=== PATIENT | female | born 1985 | race Caucasian/White ===

== ENCOUNTER 2021-10-14 10:45 | Inpatient (IN) | payer MEDICAID ==
[~2021-10-14] VITALS: Ht 172.7 cm; Wt 109.8 kg
[2021-10-14 10:51] VITALS: BP 200/153
--- NOTE | 2021-10-14 10:57 | NUR ---
PT ASSISTED TO BED 05 VIA W/C.
[2021-10-14] MEDS ORDERED: NITROGLYCERIN 0.4 MG TAB SL ONE (11:40)
[2021-10-14] MEDS ORDERED: FUROSEMIDE 40 MG/4 ML VIAL IVP SCH (11:40)
[2021-10-14] MEDS ORDERED: ASPIRIN 325 MG TAB PO ONE (11:40)
--- NOTE | 2021-10-14 11:50 | NUR ---
36/F PRESENTS TO ED WITH C/O SOB AND ABDOMINAL DISTENTION AND PAIN X4 DAYS. PATIENTS STATES HX OF CHF, STATING SHE USES OXYGEN AT HOME INTERMITTENTLY NEEDED. PATIENT STATING OVER THE LAST 4 DAYS SHE HAS FELT INCREASINGLY MORE SOB. PATIENT ALSO C/O ABDOMINAL PAIN, STATING "MY STOMACH IS STICKING OUT MORE AND MORE EVERDAY." ABDOMEN APPEARS DISTENDED AND FIRM, TENDER TO TOUCH. PATIENT REPORTS SHE HAS BEEN OUT OF HER PRESCRIBED LASIX AT HOME AND STATES SHE BELIEVES IT IS CONTRIBUTING TO HER PAIN. DENIES CP, HEADACHE, DIZZINESS. 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 EVANS.
--- NOTE | 2021-10-14 12:00 | NUR ---
PATIENT CANNOT RECALL NAMES OF HOME MEDICATIONS, STATED FAMILY IS UNAWARE OF MEDICATION NAMES AND DOSAGES.
--- NOTE | 2021-10-14 12:10 | NUR ---
URINE SAMPLE HANDED TO ENGINEERING AIDE PRISCILLA
[2021-10-14 12:22] LABS: ANION GAP 13.7 (8-16); CARBON DIOXIDE 25.2 mmol/L (21-32); CREATININE 1.2 mg/dL (0.6-1.3); POTASSIUM 4.9 mmol/L (3.5-5.1)
[2021-10-14 12:23] LABS: BASOPHILS # (AUTO) 0.1 K/uL (0.00-0.22); BASOPHILS % (AUTO) 1.1 % (0.0-2.0); EOSINOPHILS # (AUTO) 0.1 K/uL (0-0.4); HEMATOCRIT 50.7 % (36-48); HEMOGLOBIN 15.9 g/dL (12.0-16.0); LYMPHOCYTES # (AUTO) 2.8 K/uL (2.5-16.5); LYMPHOCYTES % (AUTO) 51.8 % (20.5-51.1); MEAN CORPUSCULAR HEMOGLOBIN 24 pg (27-31); MEAN CORPUSCULAR HGB CONC 31 g/dL (33-37); MEAN CORPUSCULAR VOLUME 77.7 fL (80-94); MONOCYTES # (AUTO) 0.7 K/uL (0.8-1.0); MONOCYTES % (AUTO) 13.9 % (1.7-9.3); NEUTROPHILS # (AUTO) 1.7 K/uL (1.8-7.7); NEUTROPHILS % (AUTO) 32.2 % (42.2-75.2); PLATELET COUNT (AUTO) 238 K/uL (140-450); RED BLOOD CELL COUNT(AUTO) 6.52 MIL/uL (4.20-5.40); RED CELL DISTRIBUTION WIDTH 17.5 % (11.6-13.7); WHITE BLOOD COUNT (AUTO) 5.4 K/uL (4.8-10.8)
[2021-10-14 12:28] LABS: LIPASE 50 U/L (73-393)
[2021-10-14 13:02] LABS: BARBITURATE, URINE NEGATIVE ng/ml (NEG <=200); BENZODIAZEPINE, URINE NEGATIVE ng/mL (NEG <=200); CANNABINOID, URINE POSITIVE ng/mL (NEG <=50); COCAINE, URINE NEGATIVE ng/mL (NEG <=300); OPIATE, URINE NEGATIVE ng/mL (NEG <=2000); PHENCYCLIDINE SCREEN,URINE NEGATIVE ng/mL (NEG <=25)
[2021-10-14 13:16] LABS: ALBUMIN 2.9 g/dL (3.4-5.0); TOTAL BILIRUBIN 1.1 mg/dL (0.0-1.0)
[2021-10-14] MEDS ORDERED: MORPHINE SULFATE 4 MG/ML SYR IVP ONE (14:15)
[2021-10-14] MEDS ORDERED: FUROSEMIDE 20 MG/2 ML VIAL IVP ONE (14:50)
--- NOTE | 2021-10-14 15:57 | NUR ---
PUREWICK PLACED FOR PATIENT AND HOOKED TO SUCTION, ALL NEEDS MET AT THIS TIME.
--- NOTE | 2021-10-14 15:57 | NUR ---
MURRAY SWAB COLLECTED AND WALKED TO LAB
--- NOTE | 2021-10-14 17:50 | NUR ---
Patient provided with dinner tray, sitting up in bed eating. All needs met at this time.
--- NOTE | 2021-10-14 18:40 | NUR ---
PATIENT C/O NAUSEA WHILE EATING DINNER, ADMIT DR. LO TEXTED FOR PRN NAUSEA MEDICATION, AWAITING RESPONSE.
--- NOTE | 2021-10-14 19:16 | NUR ---
PATIENTS REPEAT BLOOD PRESSURE 191/148, DR. LO TEXTED AND NOTIFIED, AWAITING RESPONSE.
--- NOTE | 2021-10-14 19:17 | NUR ---
Pt report given to RONEY HAIR. Transfer of care at this time.
--- NOTE | 2021-10-14 19:30 | NUR ---
RCV ORDERS FROM ADMIT WILL GIVE TO PT AND MONITOR FOR CHANGES
[2021-10-14] MEDS ORDERED: METOPROLOL 25 MG TAB ONE (19:32)
[2021-10-14] MEDS ORDERED: ONDANSETRON 4 MG/2 ML VIAL ONE (19:32)
[2021-10-14] MEDS: ONDANSETRON 4 MG/2 ML VIAL IVP PRN (20:03)
--- NOTE | 2021-10-14 20:08 | NUR ---
2003- PT C/O NAUSEA. ZOFRAN 4MG IVP ADMINISTERED. WILL REEVALUATE.
--- NOTE | 2021-10-14 20:38 | NUR ---
Patient will be admitted to care of / TERESITA. Admited to TELE. Will go to room 104. Belongings list completed. Report to DOUG GALVAN.
--- NOTE | 2021-10-14 20:53 | NUR ---
The patient's care was reviewed and supervised by Luci Ram RN.
--- NOTE | 2021-10-14 21:00 | NUR ---
RECEIVED PATIENT FROM ER NURSE VIA KIMMY,PT IS ALERT . ON 2L NC, IV SITE LAC 22 G. PATENT AND INTACT,NO DISTRESS NOTED
[2021-10-14] MEDS: METOPROLOL 25 MG TAB PO SCH (21:23)
[2021-10-15] VITALS (7 sets, daily range): BP systolic 99–163; BP diastolic 66–125
--- NOTE | 2021-10-15 01:00 | NUR ---
PT COMPLAIN OF N/V GAVE ZOFRAN 4MG IVP,TOLERATED WELL
--- NOTE | 2021-10-15 03:00 | NUR ---
PATIENT ASLEEP, RESPIRATIONS EVEN AND UNLABORED , NO DISTRESS NOTED
[2021-10-15] MEDS: ONDANSETRON 4 MG/2 ML VIAL IVP PRN (04:59)
--- NOTE | 2021-10-15 06:00 | NUR ---
PATIENT IS AWAKEAND ASK TO BE CLEANED.PT IS ON FLUID RESTRICTIONS PROTOCOL
--- NOTE | 2021-10-15 07:15 | NUR ---
Received report from pm nurse. Pt resting in bed, awake, aaox4, no c/o pain at this time. Respirations even & nonlabored with O2 @ 2Lpm via n/c. Call light within reach. Purewick in place with continuous suction.
--- NOTE | 2021-10-15 08:52 | NUR ---
PATIENT HAS BEEN SCREENED AND CATEGORIZED MODERATE NUTRITION RISK. PATIENT WILL BE SEEN WITHIN 3-5 DAYS OF ADMISSION. / JOANIE CEE RD
[2021-10-15] MEDS: METOPROLOL 25 MG TAB PO SCH (09:00)
[2021-10-15] MEDS ORDERED: MAG SULF 2000 MG/WATER PREMIX 50 ML IV PRN (09:20)
[2021-10-15] MEDS ORDERED: ZOLPIDEM 5 MG TAB PO PRN (09:20)
[2021-10-15] MEDS ORDERED: ACETAMINOPHEN 325 MG TAB PO PRN (09:20)
[2021-10-15] MEDS ORDERED: POTASSIUM CHLORIDE 10 MEQ TABER PO PRN (09:20)
[2021-10-15] MEDS ORDERED: ONDANSETRON 4 MG/2 ML VIAL IM/IVP PRN (09:20)
[2021-10-15] MEDS ORDERED: LORazepam 2 MG/ML VIAL IM/IVP PRN (09:20)
[2021-10-15] MEDS ORDERED: DOCUSATE SODIUM 100 MG GELCAP PO PRN (09:20)
[2021-10-15] MEDS ORDERED: FUROSEMIDE 40 MG/4 ML VIAL IVP SCH (09:25)
[2021-10-15 10:20] LABS: HEMATOCRIT 54.8 % (36-48); MONOCYTES # (AUTO) 0.5 K/uL (0.8-1.0); WHITE BLOOD COUNT (AUTO) 8.4 K/uL (4.8-10.8)
[2021-10-15 10:27] LABS: ANION GAP 23.9 (8-16); BASOPHILS % (AUTO) 0.5 % (0.0-2.0); CARBON DIOXIDE 15.7 mmol/L (21-32); CREATININE 1.9 mg/dL (0.6-1.3); EOSINOPHILS % (AUTO) 0.2 % (0.0-4.0); LYMPHOCYTES # (AUTO) 2.3 K/uL (2.5-16.5); LYMPHOCYTES % (AUTO) 27.5 % (20.5-51.1); MEAN CORPUSCULAR HEMOGLOBIN 25 pg (27-31); MEAN CORPUSCULAR HGB CONC 31 g/dL (33-37); MONOCYTES % (AUTO) 6.1 % (1.7-9.3); NEUTROPHILS # (AUTO) 5.5 K/uL (1.8-7.7); NEUTROPHILS % (AUTO) 65.7 % (42.2-75.2); PLATELET COUNT (AUTO) 216 K/uL (140-450); RED BLOOD CELL COUNT(AUTO) 6.93 MIL/uL (4.20-5.40); RED CELL DISTRIBUTION WIDTH 18.2 % (11.6-13.7)
[2021-10-15 10:30] LABS: POTASSIUM 6.6 mmol/L (3.5-5.1)
[2021-10-15 10:33] LABS: PROTHROMBIN TIME 20.6 secs (10.8-13.4)
[2021-10-15] MEDS ORDERED: SODIUM ZIRCONIUM CYCLOSILICATE 10 GM POWD.PACK ONE (10:38)
[2021-10-15 10:42] LABS: CHOL/HDL RATIO 4.3 (1-4.5); MAGNESIUM 2.1 mg/dL (1.8-2.4); THYROID STIMULATING HORMONE 1.35 uIU/mL (0.34-3.74)
[2021-10-15] MEDS ORDERED: INSULIN REGULAR, HUMAN 100 UNIT/ML VIAL SUBQ ONE (10:45)
[2021-10-15] MEDS ORDERED: SODIUM ZIRCONIUM CYCLOSILICATE 10 GM POWD.PACK PO SCH (11:00)
[2021-10-15] MEDS ORDERED: INSULIN REGULAR, HUMAN 100 UNIT/ML VIAL IVP SCH (11:00)
[2021-10-15] MEDS ORDERED: DEXTROSE 50% 50 ML SYR IVP SCH ×2 (11:00→12:30)
[2021-10-15] MEDS ORDERED: NOREPINEPHRINE 16 MG in DEXTROSE 5% 250 ML IV PRN (11:05)
--- NOTE | 2021-10-15 11:10 | NUR ---
Notified Dr. Khanna, unable to get pt's auto and manual BP. BUE and BLE peripheral pulses weak, extremities cold to touch. Pt ordered to transfer pt to ICU.
--- NOTE | 2021-10-15 11:20 | NUR ---
Patient transferred to ICU via hospital bed. Report given to ICU nurse. Pt lethargic but able to open eyes to name, able to answer questions appropriately. Periwick removed per Dr. Khanna.
--- NOTE | 2021-10-15 11:25 | NUR ---
Received pt lying in bed alert and oriented x4 able to answer questions. Pt. drowsy. Breathing even and unlabored. On 4L per nasal cannula. Sinus rhythm on monitor. Bowel sounds hypoactive x4 quads. 20 gauge on left forearm intact and patent. Oriented pt to environment. Safety precautions in place.
[2021-10-15] MEDS ORDERED: FUROSEMIDE 100 MG in DEXTROSE 5% 90 ML IV SCH (11:30)
--- NOTE | 2021-10-15 11:35 | NUR ---
Blood sugar 18. Dr. Khanna at bedside and ordered D50 IVP. New orders received. Pt. awake and alert. No distress noted. IV fluids infusing at 50 ml/hr. Will continue to monitor.
[2021-10-15 11:53] LABS: URINE TOTAL PROTEIN 279.7 mg/dL (0-12)
[2021-10-15] MEDS ORDERED: DEXTROSE 50% 50 ML SYR IVP PRN (12:15)
[2021-10-15] MEDS ORDERED: DEXT 5% / NACL 0.9% 1,000 ML IV SCH (12:15)
--- NOTE | 2021-10-15 12:35 | NUR ---
ULTRASOUND AT BEDSIDE.
--- NOTE | 2021-10-15 12:58 | NUR ---
DR. RIOS AT BEDSIDE EXAMINING PT.
[2021-10-15] MEDS ORDERED: hydrALAZINE 20 MG/ML VIAL IVP PRN (13:25)
[2021-10-15] MEDS ORDERED: CALCIUM GLUC 1 GM/50 mL NS BAG 50 ML IV SCH (13:30)
--- NOTE | 2021-10-15 14:22 | NUR ---
ULTRASOUND AT BEDSIDE.
[2021-10-15] MEDS: CALCIUM ACETATE 667 MG TAB PO SCH ×2 (14:24→16:36)
[2021-10-15 14:43] LABS: ANION GAP 19.1 (8-16); CARBON DIOXIDE 16.9 mmol/L (21-32); CREATININE 1.9 mg/dL (0.6-1.3)
[2021-10-15] MEDS: HYDROcodone/APAP 5/325 MG 1 TAB TAB PO PRN (15:17)
[2021-10-15] MEDS: BLOOD GLUCOSE MONITORING 1 DEV DEV FS SCH ×2 (15:50→20:51)
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
--- NOTE | 2021-10-15 17:15 | NUR ---
SPOKE WITH DR. GALVAN REGARDING PICC PLACEMENT. NO RADIOLOGIST HERE TO PLACE TLC MAY PROCEED WITH PICC LINE.
--- NOTE | 2021-10-15 18:50 | NUR ---
SPOKE TO DR. RIOS AND REPORT HIGH BLOOD PRESSURE. NEW ORDER FOR LABETELOL 10MG IVP NOTED AND CARRIED OUT.
[2021-10-15 18:51] LABS: APPEARANCE,URINE CLEAR (CLEAR); BILIRUBIN,URINE 1+ (NEGATIVE); BLOOD, URINE TRACE-L (NEGATIVE); COLOR,URINE YELLOW (YELLOW); LEUKOCYTE ESTERASE ,URINE NEGATIVE (NEGATIVE); NITRITE, URINE NEGATIVE (NEGATIVE); PH,URINE 5.5 (5.0-9.0); UGLUCOSE NEGATIVE (NEGATIVE)
--- NOTE | 2021-10-15 18:55 | NUR ---
PATIENT COMPLAINED OF NAUSEA. ZOFRAN 4MG IV GIVEN.
[2021-10-15] MEDS: LABETALOL 100 MG/20 ML VIAL IVP PRN (18:59)
--- NOTE | 2021-10-15 19:20 | NUR ---
ENDORSED TO GAME DESIGNER/CREATIVE DIRECTOR NURSE FOR CONTINUITY OF CARE.
--- NOTE | 2021-10-15 19:45 | NUR ---
PT ON 2L NASAL CANULA, CLEAR THROUGHOUT LUNG CORTEZ, ASYMMETRICAL CHEST RISE.
--- NOTE | 2021-10-15 19:49 | NUR ---
RECEIVED REPORT AT BEDSIDE FROM BEATRICEIAEVA GARCIA FOR CONTINUITY OF CARE. PT LAYING IN BED AOx4; ABLE TO LET NEEDS KNOWN. PT WITH ELEVATED BLOOD PRESSURE OF 151/107. BRACHIAL AND PEDAL PULSES PRESENT. HEART SOUNDS S1 AND S2 PRESENT. ON 2L NC WITH PT COMPLAINT OF DIFFICULTY BREATHING AND AN O2 SATURATION OF 94%. 20G TO LEFT ARM, PATENT AND INTACT, RUNNING LASIX @5ML/HR. PT ABLE TO VOID IN BEDPAN UPON REQUEST. SKIN INTACT. PT DENIES HAVING ANY PAIN AT THIS TIME. INITIAL ASSESSMENT COMPLETED. ALL SAFETY MEASURE IN PLACE. WILL CONTINUE TO MONITOR.
--- NOTE | 2021-10-15 20:05 | NUR ---
PT COMPLAINT OF BEING TOO HOT, ICE PACKS AND COOL TOWEL PROVIDED.
[2021-10-15] MEDS: hydrALAZINE 25 MG TAB PO SCH (20:51)
[2021-10-15] MEDS: ISOSORBIDE DINITRATE 10 MG TAB PO SCH (20:51)
[2021-10-15] MEDS ORDERED: carvediloL 6.25 MG TAB PO SCH (21:00)
--- NOTE | 2021-10-15 21:00 | NUR ---
PT COMPLAINT OF NOT BEING ABLE TO SLEEP. AMBIEN ADMINISTERED ORDERED. WILL CONTINUE TO MONITOR.
--- NOTE | 2021-10-15 22:10 | NUR ---
PT REQUEST TO USE BEDPAN. PT CLEANED AND REPOSITIONED. TOLERATED WELL WITH 300ML YELLOW URINE OUTPUT. Addendum: 10/16/21 at 0529 by Bryce Alvarenga RN PUREWICK APPLIED.
[2021-10-16] VITALS (10 sets, daily range): BP systolic 111–162; BP diastolic 76–106
--- NOTE | 2021-10-16 00:10 | NUR ---
PICC LINE NURSE AT BEDSIDE FOR INSERTION
--- NOTE | 2021-10-16 01:02 | NUR ---
CXR DONE FOR PLACEMENT OF PICC LINE; PER ISA PICC LINE NURSE, OK TO USE
--- NOTE | 2021-10-16 03:00 | NUR ---
PT AWAKE; NO SOB NOTED ON 02NC AT 2LPM.DENIES PAIN.
[2021-10-16] MEDS: hydrALAZINE 25 MG TAB PO SCH ×3 (05:07→21:29)
[2021-10-16] MEDS: ISOSORBIDE DINITRATE 10 MG TAB PO SCH ×3 (05:07→21:30)
[2021-10-16 05:38] LABS: BASOPHILS % (AUTO) 0.4 % (0.0-2.0); HEMATOCRIT 51.6 % (36-48); HEMOGLOBIN 16.1 g/dL (12.0-16.0); MEAN CORPUSCULAR HEMOGLOBIN 25 pg (27-31); MEAN CORPUSCULAR HGB CONC 31 g/dL (33-37); MEAN CORPUSCULAR VOLUME 78.5 fL (80-94); MONOCYTES # (AUTO) 0.7 K/uL (0.8-1.0); MONOCYTES % (AUTO) 7.8 % (1.7-9.3); NEUTROPHILS # (AUTO) 5.6 K/uL (1.8-7.7); NEUTROPHILS % (AUTO) 59.8 % (42.2-75.2); PLATELET COUNT (AUTO) 196 K/uL (140-450); RED BLOOD CELL COUNT(AUTO) 6.57 MIL/uL (4.20-5.40); RED CELL DISTRIBUTION WIDTH 18.4 % (11.6-13.7); WHITE BLOOD COUNT (AUTO) 9.3 K/uL (4.8-10.8)
[2021-10-16 06:18] LABS: ANION GAP 17.7 (8-16); CARBON DIOXIDE 20.8 mmol/L (21-32); CREATININE 1.7 mg/dL (0.6-1.3); POTASSIUM 5.5 mmol/L (3.5-5.1)
[2021-10-16 06:23] LABS: MAGNESIUM 1.9 mg/dL (1.8-2.4); PHOSPHORUS 4.3 mg/dL (2.5-4.9)
--- NOTE | 2021-10-16 07:35 | NUR ---
RECEIVED BEDSIDE REPORT FROM ELECTRICIAN SHIP NURSE FOR CONTINUITY OF CARE. POC DISCUSSED. PT IS AOX4. RALPH PICC LINE WITH TKO D5 PATENT AND INTACT. HEART SOUNDS REGULAR. ST ON HEART MONITOR. ON 2L NC. SATING AT 94. BREATHING IS EVEN AND UNLABORED. NO SIGNS OF DISTRESS NOTED. ON CARDIAC DIET. PURE WICK IN PLACE WITH LIGHT YELLOW CLEAR URINE. PT IS STABLE.
[2021-10-16] MEDS: BLOOD GLUCOSE MONITORING 1 DEV DEV FS SCH ×4 (08:26→21:46)
[2021-10-16] MEDS: CALCIUM ACETATE 667 MG TAB PO SCH ×3 (08:59→17:00)
[2021-10-16 09:06] LABS: T4 (THYROXINE) 6.8 ug/dL (4.5-12.0)
[2021-10-16] MEDS ORDERED: SODIUM ZIRCONIUM CYCLOSILICATE 10 GM POWD.PACK PO SCH (10:00)
[2021-10-16] MEDS: LABETALOL 100 MG/20 ML VIAL IVP PRN (11:14)
[2021-10-16] MEDS: NIFEdipine 60 MG TABER PO SCH (11:30)
--- NOTE | 2021-10-16 12:00 | NUR ---
STILL CHANGING BP MEDS TO ADJUST AND FIX PT BLOOD PRESSURE. GAVE LABETOLOL AND WILL START ON NIFEDIPINE. WILL CONTINUE TO MONITOR. LASIX DRIP RUNNING. PT URINE OUTPUT IS GOOD. 1 LITER OUT SO FAR.
[2021-10-16] MEDS: HYDROcodone/APAP 5/325 MG 1 TAB TAB PO PRN ×2 (14:02→23:20)
--- NOTE | 2021-10-16 14:52 | NUR ---
NORCO GIVEN FOR PAIN PER MD ORDER. PT BP IS SLIGHTLY IMPROVING NOW. 1 MORE LITER, TOTAL 2 LITERS OUT OF LIGHT YELLOW URINE WITH PUREWICK. PT IS BREATHING EVEN AND UNLABORED. NO SIGNS OF DISTRESS NOTED. PT IS STABLE.
--- NOTE | 2021-10-16 15:23 | NUR ---
DC PLANNING SW ATTEMPTED TO SEE PATIENT AT BEDSIDE FOR THE PURPOSE OF DISCUSSING AND GATHERING COLLATERAL INFORMATION HOWEVER, PATIENT STRUGGLED WITH STAYING AWAKE LONG ENOUGH TO RESPOND TO SW. SW WILL ATTEMPT TO MEET WITH PATIENT 11/16 WHEN PATIENT IS MORE ALERT.
--- NOTE | 2021-10-16 18:29 | NUR ---
BROUGHT PATIENT UP TO [facility] FLOOR TO ROOM 110A. PT IS BREATHING EVEN AND UNLABORED. ON 2L NC SATING AT 96. CONNECTED NEW PURE WICK TO SUCTION. PT IS SHOWING NO SIGNS OF DISTRESS. PT IS STABLE.
[2021-10-16] MEDS: INSULIN LISPRO SLIDING SCALE 100 UNITS/ML VIAL SUBQ PRN (21:43)
--- NOTE | 2021-10-16 23:00 | NUR ---
GET REPORT FROM NURSE SCHMIDT , PATIENT IS LYING ON BED ,PATIENT IS ALERT AND ORIENTED X3 , VITAL SIGN IS WITHIN THE RANGE , PATIENT IS RECEIVING 2 LITER OXYGEN,NO ANY COMPLAIN OF SHORTNESS OF BREATH AT THIS TIME , CALL LIGHT IS WITHIN THE REACH WILL CONTINUE TO MONITOR PATIENT.
--- NOTE | 2021-10-16 23:20 | NUR ---
PATIENT IS COMPLAINING OF HEADACHE 11/30 , PATIENT IS ASKING NORCO FOR PAIN PRN , MEDICATION IS GIVEN PER DR ORDER , WILL REASSESS PAIN LAVAL , CALL LIGHT IS WITHIN THE REACH, WILL CONTINUE TO MONITOR PATIENT.
[2021-10-17] VITALS: BP 136/71
--- NOTE | 2021-10-17 | NUR ---
PATIENT IS LYING ON BED, NO ANY COMPLAIN OF PAIN,VITAL SIGN IS WITHIN THE NORMAL RANGE , , CALL LIGHT IS WITHIN THE REACH , WILL CONTINUE TO MONITOR PATIENT.
[2021-10-17 04:00] VITALS: BP 134/80
--- NOTE | 2021-10-17 04:16 | NUR ---
PATIENT IS LYING ON BED , NO ANY COMPLAIN OF PAIN OR SOB AT THIS TIME , VITAL SIGN IS WITHIN THE RANGE , CALL LIGHT IS WITHIN THE REACH ,WILL CONTINUE TO MONITOR PATIENT.
[2021-10-17] MEDS: hydrALAZINE 25 MG TAB PO SCH ×3 (04:36→21:00)
[2021-10-17] MEDS: ISOSORBIDE DINITRATE 10 MG TAB PO SCH ×3 (04:36→21:00)
[2021-10-17] MEDS: HYDROcodone/APAP 5/325 MG 1 TAB TAB PO PRN ×3 (04:56→23:05)
[2021-10-17] MEDS: BLOOD GLUCOSE MONITORING 1 DEV DEV FS SCH ×4 (06:39→21:00)
[2021-10-17] MEDS: INSULIN LISPRO SLIDING SCALE 100 UNITS/ML VIAL SUBQ PRN ×3 (06:45→23:09)
[2021-10-17 07:09] LABS: BASOPHILS % (AUTO) 0.3 % (0.0-2.0); EOSINOPHILS % (AUTO) 0.2 % (0.0-4.0); HEMATOCRIT 47.1 % (36-48); HEMOGLOBIN 14.8 g/dL (12.0-16.0); LYMPHOCYTES # (AUTO) 2.2 K/uL (2.5-16.5); LYMPHOCYTES % (AUTO) 21.7 % (20.5-51.1); MEAN CORPUSCULAR HEMOGLOBIN 24 pg (27-31); MEAN CORPUSCULAR HGB CONC 32 g/dL (33-37); MEAN CORPUSCULAR VOLUME 77.1 fL (80-94); MONOCYTES # (AUTO) 0.8 K/uL (0.8-1.0); MONOCYTES % (AUTO) 7.4 % (1.7-9.3); NEUTROPHILS # (AUTO) 7.2 K/uL (1.8-7.7); NEUTROPHILS % (AUTO) 70.4 % (42.2-75.2); PLATELET COUNT (AUTO) 190 K/uL (140-450); RED BLOOD CELL COUNT(AUTO) 6.11 MIL/uL (4.20-5.40); WHITE BLOOD COUNT (AUTO) 10.2 K/uL (4.8-10.8)
[2021-10-17 07:17] LABS: ANION GAP 8.8 (8-16); CARBON DIOXIDE 32.5 mmol/L (21-32); CREATININE 1.4 mg/dL (0.6-1.3); POTASSIUM 3.3 mmol/L (3.5-5.1)
[2021-10-17 07:31] LABS: MAGNESIUM 1.5 mg/dL (1.8-2.4); PHOSPHORUS 2.7 mg/dL (2.5-4.9)
--- NOTE | 2021-10-17 07:31 | NUR ---
GAVE REPORT TO MORNING NURSE MARINA, PATIENT IS STABLE.
[2021-10-17 08:00] VITALS: BP 112/68
--- NOTE | 2021-10-17 08:00 | NUR ---
RECEIVED PATIENT LAYING IN BED, PATIENT IS ALERT AND ORIENTED TIMES 3, PATIENT CHIEF COMPLAINT IS SOB, DIAGNOSIS ACUTE CHF EXACERBATION AND PRE RENAL KIDNEY INJURY. PATIENT HAS A HISTORY OF HYPERTENSION, METH ABUSE AND CHF. PATIENT LUGS ARE CLEAR NO ADVENTITIOUS SOUS HEARD, PATIENT IS CURRENTLY ON 2L NC WITH AN O2 SATURATION OF 93%. PATIENT WITH NOTICEABLE GENERALIZED WEAKNESS. ABDOMEN DISTENDED BOWELS SOUNDS HEARD IN ALL FOUR QUADRANTS. LEFT SIDE OF PATIENT BELLY IS HARD, RIGHT LOWER SIDE IS SOFT, ABDOMEN NONTENDER PER PATIENT REPORT. CALL LIGHT WITHIN REACH, PERSONAL BELONGINGS AT BEDSIDE, BED AT LOWEST POSITION AND LOCKED. WILL CONTINUE TO MONITOR. SHILOH CURRENTLY USING PUREWICK.
--- NOTE | 2021-10-17 09:00 | NUR ---
SPOKE TO DO ISA SULLIVAN ABOUT PATIENT FLUID RESTRICTION. DOCTOR NATE STATS PATIENT CAN BE ON 2L FLUID RESTRICTION, PATIENT NOTIFIED. WILL NOTIFY ONCOMING NURSE.
[2021-10-17] MEDS: NIFEdipine 60 MG TABER PO SCH (09:43)
[2021-10-17] MEDS: CALCIUM ACETATE 667 MG TAB PO SCH ×3 (09:43→18:07)
--- NOTE | 2021-10-17 11:00 | NUR ---
PATIENT RIGHT FOREARM IV SITE BURNING AND 2ML FLUSH WITH NS, IV TAKEN OUT AND COVERED WITH DRY DRESSING, OCONNOR NOTED ON FOREARM. CHARGE NURSE INFORMED. WILL CONTINUE TO MONITOR.
[2021-10-17 12:00] VITALS: BP 110/81
--- NOTE | 2021-10-17 12:00 | NUR ---
PATIENT STATES ARM PAIN IS BETTER AND IS SUBSIDING, WILL CONTINUE TO MONITOR THROUGHOUT SHIFT.
[2021-10-17] MEDS: FUROSEMIDE 40 MG/4 ML VIAL IVP SCH ×2 (12:23→21:00)
--- NOTE | 2021-10-17 13:30 | NUR ---
DC PLANNING SW ATTEMPTED TO MEET WITH PATIENT TO GET COLLATERAL INFORMATION AND TO PROVIDE RESOURCES FOR PATIENT. DURING THE ATTEMPTED MEETING PATIENT WAS UNABLE TO STAY AWAKE AND TO RESPOND CONGRUENTLY TO ANY OF THE QUESTIONS ASKED. PATIENT WAS NOT FULLY ALERT. SW WILL CONTINUE TO ATTEMPT TO MEET WITH PATIENT OR CONTACT EMERGENCY CONTACT JAZ LUJAN AT . SW ATTEMPTED TO CALL PATIENT'S LISTED EMERGENCY CONTACT JAZ LUJAN AT . NO RESPONSE AND VOICEMAIL WAS FULL THEREFORE; SW WAS UNABLE TO LEAVE [facility].
--- NOTE | 2021-10-17 14:00 | NUR ---
REASSESSED PATIENT RIGHT FOREARM IV SITE, PATIENT SAID THERE IS TENDERNESS UPON TOUCH, SITE IS NO RED OR SWOLLEN, NOR HAS IT APPEARED TO HAVE GOTTEN WORST. WILL CONTINUE TO MONITOR THROUGHOUT SHIFT.
--- NOTE | 2021-10-17 15:00 | NUR ---
PRN MAGNESIUM GIVEN PER DOCTOR ORDER, WILL MONITOR LAB VALUES.
[2021-10-17 16:00] VITALS: BP 124/81
[2021-10-17 20:00] VITALS: BP 112/64
[2021-10-18] VITALS: BP 120/70
--- NOTE | 2021-10-18 01:45 | NUR ---
PATIENT AWAKE BUT SLEEPY ASK FOR KARISHMATYLERO ANG SANDWICH ON MONITOR SINUS TACH 02 2 LITERS N/C SAT 98%. LUNGS DIMINISH PATIENT HAS A RIGHT UPPER ARM MIDLINE. HL. PATIENT HAS A PURWICK PATIENT C/O OF PAIN BUT DOESNT TELL YOU WHERE THE PAIN IS. BLOOD SUGAR 147 NO INSULIN GIVEN PATIENT EYES ARE JAUNDICE. PATIENT SLEEPING NO SIGNS OF DISTRESS.
[2021-10-18 04:00] VITALS: BP 118/72
[2021-10-18] MEDS: FUROSEMIDE 40 MG/4 ML VIAL IVP SCH (05:00)
[2021-10-18] MEDS: hydrALAZINE 25 MG TAB PO SCH ×2 (05:00→13:14)
[2021-10-18] MEDS: ISOSORBIDE DINITRATE 10 MG TAB PO SCH ×2 (05:00→13:13)
[2021-10-18] MEDS: BLOOD GLUCOSE MONITORING 1 DEV DEV FS SCH ×2 (06:17→11:30)
[2021-10-18] MEDS: HYDROcodone/APAP 5/325 MG 1 TAB TAB PO PRN ×2 (06:17→15:29)
[2021-10-18 07:08] LABS: CARBON DIOXIDE 32.5 mmol/L (21-32); CREATININE 1.1 mg/dL (0.6-1.3); POTASSIUM 3.5 mmol/L (3.5-5.1)
[2021-10-18 07:10] LABS: BASOPHILS % (AUTO) 0.5 % (0.0-2.0); EOSINOPHILS # (AUTO) 0.1 K/uL (0-0.4); EOSINOPHILS % (AUTO) 0.7 % (0.0-4.0); HEMATOCRIT 44.1 % (36-48); LYMPHOCYTES # (AUTO) 1.9 K/uL (2.5-16.5); LYMPHOCYTES % (AUTO) 24.3 % (20.5-51.1); MEAN CORPUSCULAR HEMOGLOBIN 24 pg (27-31); MEAN CORPUSCULAR HGB CONC 32 g/dL (33-37); MEAN CORPUSCULAR VOLUME 76.8 fL (80-94); MONOCYTES # (AUTO) 0.8 K/uL (0.8-1.0); MONOCYTES % (AUTO) 9.9 % (1.7-9.3); NEUTROPHILS # (AUTO) 5.1 K/uL (1.8-7.7); NEUTROPHILS % (AUTO) 64.6 % (42.2-75.2); PLATELET COUNT (AUTO) 185 K/uL (140-450); RED BLOOD CELL COUNT(AUTO) 5.75 MIL/uL (4.20-5.40); RED CELL DISTRIBUTION WIDTH 17.3 % (11.6-13.7); WHITE BLOOD COUNT (AUTO) 7.9 K/uL (4.8-10.8)
[2021-10-18 07:23] LABS: MAGNESIUM 1.7 mg/dL (1.8-2.4); PHOSPHORUS 2.5 mg/dL (2.5-4.9)
[2021-10-18 08:00] VITALS: BP 111/72
[2021-10-18] MEDS: CALCIUM ACETATE 667 MG TAB PO SCH ×2 (08:34→13:13)
[2021-10-18] MEDS: NIFEdipine 60 MG TABER PO SCH (08:34)
[2021-10-18] MEDS ORDERED: LACTULOSE 20 GM/30 ML UDC PO SCH (09:00)
--- NOTE | 2021-10-18 13:30 | NUR ---
10/18/21 RD INITIAL ASSESSMENT COMPLETED PLEASE REFER TO NUTRITION ASSESSMENT UNDER CARE ACTIVITY FOR ESTIMATED NUTRITIONAL NEEDS. 1. CONTINUE CARDIAC DIET TOLERATED 2. MONITOR % PO INTAKE AND GI SYMPTOMS 3. MONITOR BLOOD GLUCOSE LEVELS 4. RD TO FOLLOW-UP 3-5 DAYS, MODERATE RISK JOANIE CEE, MABEL
[2021-10-18] MEDS ORDERED: ISOS10TA9 PO (14:48)
[2021-10-18] MEDS ORDERED: HYDR-4420 PO (14:48)
[2021-10-18] MEDS ORDERED: FURO40TA9 PO (14:48)
[2021-10-18] MEDS ORDERED: CARV3.122 PO (14:48)
[2021-10-18] MEDS ORDERED: NIFE60TA39 PO (14:48)
--- NOTE | 2021-10-18 15:00 | NUR ---
PATIENT WITH DISCHARGE ORDERS, PATIENT CURRENTLY ON OXYGEN 2L NC. ASSESSED PATIENT WITHOUT OXYGEN, PATIENT OXYGEN DESATURATING TO 83% ON ROOM AIR, PATIENT STATES SHE HAS OXYGEN COMPRESSOR IN CAR THAT NEEDS TO BE PLUGGED INTO THE WALL. PATIENT IS CURRENTLY HOMELESS AND TRYING TO GET ACCEPTED INTO LONG-TERM. PATENT IS LIGHTHEADED AND REPORTS HAVING DIFFICULTY WALKING.
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
[2021-10-18 16:36] VITALS: BP 110/41
[2021-10-18] MEDS ORDERED: FUROSEMIDE 40 MG TAB PO SCH (17:00)
[2021-10-18] MEDS ORDERED: carvediloL 3.125 MG TAB PO SCH (21:00)
[2021-10-19] MEDS ORDERED: FUROSEMIDE 40 MG/4 ML VIAL IVP SCH (09:00)
== END 2021-10-18 17:35 | disposition home or self-care (01) | DRG 194 ==
LOC: MED 10:45 → MTU 14:45 → MIC 10-15 11:15 → MTU 10-16 16:10
PROC: 02HV33Z Insertion of Infusion Device into Superior Vena Cava, Percutaneous Approach (ICD-10-PCS; principal; 2021-10-16)
PROC: B548ZZA Ultrasonography of Superior Vena Cava, Guidance (ICD-10-PCS; 2021-10-16)
DX: I11.0 Hypertensive heart disease with heart failure (principal); N17.0 Acute kidney failure with tubular necrosis; G93.41 Metabolic encephalopathy; E87.2 Acidosis; E44.0 Moderate protein-calorie malnutrition; E87.1 Hypo-osmolality and hyponatremia; D68.9 Coagulation defect, unspecified; I27.29 Other secondary pulmonary hypertension; E86.0 Dehydration; I50.43 Acute on chronic combined systolic (congestive) and diastolic (congestive) heart failure; K74.60 Unspecified cirrhosis of liver; Z20.822 Contact with and (suspected) exposure to COVID-19; F17.200 Nicotine dependence, unspecified, uncomplicated; I42.9 Cardiomyopathy, unspecified; I16.1 Hypertensive emergency; E87.5 Hyperkalemia; R73.03 Prediabetes; F12.90 Cannabis use, unspecified, uncomplicated; F15.10 Other stimulant abuse, uncomplicated; Z71.51 Drug abuse counseling and surveillance of drug abuser; Z68.36 Body mass index [BMI] 36.0-36.9, adult
CPT/HCPCS: 36415; 36600; 71045; 76700; 80048; 80053; 80305; 81003; 82570; 82803; 82948; 83036; 83690; 83735; 83880; 84100; 84134; 84300; 84436; 84443; 84484; 85025; 85610; 85730; 87081; 93005; 93925; 93970; 96374; 96375; 99285; J0360; J0610; J1644; J1815; J1940; J2270; J2405; J3475; J3490; J7060; Q0092

== ENCOUNTER 2022-10-21 02:51 | Emergency (ER) | payer MEDICAID ==
[~2022-10-21] VITALS: Ht 170.2 cm; Wt 93.0 kg
[~2022-10-21 02:51] MED LIST: CARV3.122 PO; FURO40TA9 PO; HYDR-4420 PO; ISOS10TA9 PO; NIFE60TA39 PO
[2022-10-21 02:56] VITALS: BP 127/91
--- NOTE | 2022-10-21 03:00 | NUR ---
PT OFFLOADED TO [facility]
--- NOTE | 2022-10-21 03:18 | NUR ---
Blood for labwork drawn by steward/stewardess deck. Patient tolerated well.
[2022-10-21 03:29] LABS: BASOPHILS % (AUTO) 1.2 % (0.0-2.0); EOSINOPHILS % (AUTO) 0.9 % (0.0-4.0); HEMATOCRIT 48.9 % (36-48); HEMOGLOBIN 15.6 g/dL (12.0-16.0); LYMPHOCYTES % (AUTO) 47.1 % (20.5-51.1); MEAN CORPUSCULAR HEMOGLOBIN 25 pg (27-31); MEAN CORPUSCULAR HGB CONC 32 g/dL (33-37); MONOCYTES # (AUTO) 0.7 K/uL (0.8-1.0); MONOCYTES % (AUTO) 15.3 % (1.7-9.3); NEUTROPHILS # (AUTO) 1.5 K/uL (1.8-7.7); NEUTROPHILS % (AUTO) 35.5 % (42.2-75.2); PLATELET COUNT (AUTO) 208 K/uL (140-450); RED BLOOD CELL COUNT(AUTO) 6.28 MIL/uL (4.20-5.40); RED CELL DISTRIBUTION WIDTH 17.2 % (11.6-13.7); WHITE BLOOD COUNT (AUTO) 4.3 K/uL (4.8-10.8)
[2022-10-21 03:49] LABS: ALBUMIN 3.8 g/dL (3.4-5.0); CREATININE 1.5 mg/dL (0.6-1.3); POTASSIUM 3.8 mmol/L (3.5-5.1); TOTAL BILIRUBIN 1.1 mg/dL (0.0-1.0)
[2022-10-21 03:53] LABS: ANION GAP 15.1 (8-16); CARBON DIOXIDE 25.7 mmol/L (21-32)
[2022-10-21 03:57] LABS: BASOPHILS # (AUTO) 0.1 K/uL (0.00-0.22)
--- NOTE | 2022-10-21 03:57 | NUR ---
Patient taken to X-ray via WC.
[2022-10-21 04:11] LABS: PROTHROMBIN TIME 13.1 secs (10.8-13.4)
[2022-10-21] MEDS ORDERED: FUROSEMIDE 40 MG TAB PO ONE (05:00)
[2022-10-21] MEDS ORDERED: ACETAMINOPHEN EXTRA STRENGTH 500 MG TAB PO ONE (05:00)
--- NOTE | 2022-10-21 06:48 | NUR ---
Sal white in [facility] - 10/21/22 at 0650 by YANET PT TAKEN TO BED 12
[2022-10-21 09:20] VITALS: BP 94/73
--- NOTE | 2022-10-21 09:21 | NUR ---
Patient discharged with v/s stable. Written and verbal after care instructions given and explained. Patient verbalized understanding. Ambulatory with steady gait. All questions addressed prior to discharge. Advised to follow up with PMD. pt refusing to sign dx paperwork
== END 2022-10-21 09:20 | disposition home or self-care (01) ==
LOC: MED 02:51
DX: I50.9 Heart failure, unspecified (principal); R07.9 Chest pain, unspecified; R06.02 Shortness of breath; R11.0 Nausea; Z79.899 Other long term (current) drug therapy
CPT/HCPCS: 36415; 71045; 80053; 83880; 84484; 85025; 85610; 85730; 93005; 99285; Q0092